=== PATIENT | male | born 1970 | race Hispanic/Latino ===

== ENCOUNTER 2018-01-29 08:15 | Outpatient (CLI) | payer BC ==
[2018-01-29] MEDS ORDERED: Magnevist 469MG/ML 20 ML VIAL ONE (09:00)
--- NOTE | 2018-01-29 12:30 | MRI ---
MRI OF THE PELVIS WITH AND WITHOUT IV CONTRAST: Date: 01/29/18 INDICATION: Concern for bone lesion involving the right inferior pubic ramus. COMPARISON: Radiographs of the right hip dated 01/08/18. TECHNIQUE: Multiplanar, multisequence MR images were obtained of the pelvis with and without IV contrast utilizi ng 20 mL of MultiHance. FINDINGS: There is a serpiginous and heterogeneous T2 signal involving the femoral head with surrounding marrow edema of the femoral head, femoral neck, and proximal femoral metaphyseal region consistent with wilner nges of osteonecrosis of the femoral head. There is loss of some concentricity involving the anterior superior aspect of the femoral head on image 17 of series 7 which may reflect a small, focal area of subchondral collapse. There is reactive effusion involving the right hip. There is some enhancement of the proximal right femur consistent with changes of osteitis. There is suspicion for a focal area of chondrolabral separation involving the posterior superior acetabular labrum on image 22 of series 4. The bony prominence involving the right ischial tuberosity demonstrates no definite abnormal marrow s ignal intensity or enhancement. This bony prominence is seen at the level of the right ischial tubero sity with benign appearing irregularity seen along the margin of the hamstring origin consistent with prior avulsion injury to the right ischial tuberosity with resultant bone overgrowth. No definite ac manish osseous lesion is identified. No soft tissue mass is noted. There is also evidence of osteonecrosis involving the left hip without evidence of associated effusio n. IMPRESSION: 1. The bony prominence seen involving the right ischial tuberosity is likely related to prior hamstr ing avulsion injury. No focal osseous lesion is demonstrated within this location. No soft tissue mas s is noted. 2. Osteonecrosis of both femoral heads, right greater than left. There is some loss of the normal co ncentricity of the right femoral head along its anterior superior margin on the sagittal PD fat sat i mages suspicious for a small focal region of chondral collapse. There is a reactive effusion and some reactive marrow edema involving the proximal aspect of the right femur. 3. Small area of full thickness chondrolabral separation involving the posterior superior right acet abular labrum. POS: [facility]
== END 2018-01-29 08:16 | disposition home or self-care (01) ==
LOC: SCSMRI 08:15
PROVIDERS: ATTEND Orthopaedic Surgery
DX: M25.851 Other specified joint disorders, right hip (principal); M87.851 Other osteonecrosis, right femur; M87.852 Other osteonecrosis, left femur; R60.0 Localized edema
CPT/HCPCS: 72197; A9579